=== PATIENT | female | born 1950 | race Caucasian/White ===

== ENCOUNTER → 2021-08-02 | Outpatient (CLI) | payer MEDICARE ==
[2021-08-02 15:50] LABS: HCT 48.9 % (34.0-46.0); HGB 15.5 gm/dL (11.4-16.0); MCH 30.7 pg (25.0-35.0); MCHC 31.6 g/dL (31.0-37.0); MCV 97.1 fL (80.0-100.0); Mean Platelet Volume 9.2; Platelet Count 204 k/uL (150-450); RBC 5.04 m/uL (3.80-5.40); RDW 13.2 % (11.5-15.5); WBC 6.2 k/uL (3.8-10.6)
[2021-08-02 16:01] LABS: Potassium 4.8 mmol/L (3.5-5.1)
== END | disposition home or self-care (01) ==
LOC: LABWHC1 14:08
PROVIDERS: ATTEND Internal Medicine Clinical Cardiac Electrophysiology
DX: Z01.818 Encounter for other preprocedural examination (principal); Z01.812 Encounter for preprocedural laboratory examination; I48.91 Unspecified atrial fibrillation; I48.92 Unspecified atrial flutter
CPT/HCPCS: 80051; 82565; 84520; 85027; 36415; U0003; C9803; U0005

== ENCOUNTER 2021-08-05 11:06 | Day surgery (SDC) | payer MEDICARE ==
[~2021-08-05 11:06] MED LIST: CLINDAMYCIN 900 MG in DEXTROSE 5% IN WATER 50 ML IVPB STA
[2021-08-05] MEDS: SODIUM CHLORIDE 0.9% 1,000 ML IV SCH (11:35)
[2021-08-05] MEDS ORDERED: LIDOCAINE 1% INJ 10MG/ML (20 ML MDV) ONE ×2 (11:42→13:21)
[2021-08-05] MEDS ORDERED: ONDANSETRON 4 MG/2 ML VIAL IVP STA (11:46)
[2021-08-05] MEDS ORDERED: DEXAMETHASONE SOD PHOSPHATE 4 MG/ML 1 ML VIAL IVP STA (11:46)
[2021-08-05] MEDS ORDERED: FUROSEMIDE 10 MG/ML 2 ML VIAL ONE (13:21)
[2021-08-05] MEDS ORDERED: ROCURONIUM 10 MG/ML (5 ML VIAL) IV ONE (13:21)
[2021-08-05] MEDS ORDERED: PROPOFOL 10 MG/ML 20 ML VIAL IV ONE (13:21)
[2021-08-05] MEDS ORDERED: fentaNYL (PF) 50 MCG/ML 2 ML AMP ONE (13:21)
[2021-08-05] MEDS ORDERED: GLYCOPYRROLATE 0.2 MG/ML 2 ML VIAL ONE (13:21)
[2021-08-05] MEDS ORDERED: HEPARIN SODIUM,PORCINE 10,000 UNIT/ML 1 ML VIAL ONE (13:21)
[2021-08-05] MEDS ORDERED: SUCCINYLCHOLINE CHLORIDE 100 MG/5 ML SYR IV ONE (13:21)
[2021-08-05] MEDS ORDERED: PHENYLEPHRINE-0.9% NACL SYG 1,000 MCG/10 ML SYRINGE ONE (13:21)
[2021-08-05] MEDS ORDERED: NEOSTIGMINE 1 MG/ML 10 ML VIAL ONE (13:21)
[2021-08-05] MEDS ORDERED: MIDAZOLAM 2 MG/2 ML VIAL ONE (13:21)
[2021-08-05] MEDS ORDERED: LIDOCAINE 1% INJ 10MG/ML (20 ML MDV) SQ ONE (14:16)
[2021-08-05] MEDS ORDERED: HEPARIN SOD,PORK IN 0.45% NACL 25,000 UNIT in 0.45% NACL 1 250ML.BAG IV ONE (14:17)
[2021-08-05] MEDS ORDERED: HEPARIN SODIUM (1,000 UNIT/ML) 1,000 UNIT in SODIUM CHLORIDE 0.9% 1,000 ML IRRIGATION ONE (15:40)
[2021-08-05] MEDS ORDERED: SODIUM CHLORIDE 0.9% 1,000 ML IV ONE (15:40)
[2021-08-05] MEDS ORDERED: IOPAMIDOL-370 125ML BTL INJ ONE (15:54)
--- NOTE | 2021-08-05 17:26 | P.EPPROC ---
- EP Procedure Note Electrophysiology Procedure Note: PROCEDURE A. fib ablation/PVI Typical atrial flutter ablation DIAGNOSIS Atrial fibrillation, symptomatic, refractory to therapy, with RVR Typical atrial flutter with severe bradycardia and severe pauses RESULT No left atrial appendage mass seen on intracardiac echo Biatrial enlargement with elevated pressures, preserved LV systolic function Successful A. fib ablation/pulmonary vein isolation of all veins using cryo- ablation Complete entrance block in all 4 veins confirmed No evidence for phrenic nerve injury Successful typical atrial flutter ablation with bidirectional block confirmed with differential pacing Esophageal deflection YES , left-sided esophagus Electrical cardioversion with a synchronized shock across the chest YES PROCEDURE DETAILS Patient was brought to the EP lab in a fasting state. Written informed consent was obtained prior to the procedure. Procedure performed under general anesthesia After initial muscle relaxant use, muscle relaxants were not given thereafter in order to assess phrenic nerve during procedure. Patient prepped and draped as per protocol Full cryo-set up with standard preparation of the cryoablation tools done. Femoral Venous access obtained on the right and left groins Venous and arterial Sheaths placed. Diagnostic catheters for the high right atrium, phrenic nerve stimulation and pacing, His bundle, RV and coronary sinus placed Intracardiac echo catheter placed. Long sheath placed in the right atrium Left and right transseptal catheterization performed under intracardiac echo guidance. Intravenous heparin with aCT above 300 Later, catheter positioning and balloon positioning in the left atrium, under intracardiac echo guidance Diagnostic EP study: Baseline measurements sinus cycle length 630 ms post- cardioversion VA interval 190 ms, QRS 85 ms AH 67 and HV 43 ms Coronary sinus pacing and recording Atrial pacing performed from the high right atrium AV node Wenckebach block 390 ms Sinus node recovery times at 600, 504 100 ms were 798, 1138 and 1083. Corresponding corrected sinus node recovery times normal RV pacing: His bundle pacing, concentric activation, VA Wenckebach block for 20 ms Transseptal catheterization performed RA pressure 25/10/18 LA pressure 31/13/22 Transseptal catheterization performed with standard sheath. The cryoablation sheath was then placed with an over the wire exchange without any acute complications. All 4 pulmonary veins were isolated in the following sequence: Left superior followed by left inferior followed by right superior followed by right inferior The cryo-ablation balloon was placed at the os of each vein 1.5 mL of IV dye was injected to confirm an occluded vein Goal during cryoablation was to achieve complete occlusion of the pulmonary vein, achieve -30 degrees C at 30 seconds and achieve -40 degrees C at 60 seconds and a time to effect of less than 60-90 seconds, . If not the balloon was repositioned to obtain this result After completion of Cryoblation with durations from 180-240 seconds, entrance block was confirmed with the Attain circular catheter in a roving fashion around the antrum of the pulmonary veins Phrenic nerve pacing was performed from the SVC, right innominate vein area and diaphragm voltage was monitored. Diaphragmatic contractions were also monitored manually for strength of contraction. Parameter goals for each cryo freeze Complete occlusion of the appropriate vein -30 degrees C by 30 seconds -40 degrees C by 60 seconds Minimum between minus 40-55 degrees C Thaw time greater than 10 seconds Balloon visualized by intracardiac echo The esophagus was intubated. Esophageal Temperature monitoring with a CIRCA catheter formed. Esophageal deflection for hypothermia of the esophagus below 30 degrees C Left superior pulmonary vein Complete isolation, entrance block Left inferior pulmonary vein Complete isolation, entrance block Right superior pulmonary vein, during phrenic nerve pacing Complete isolation, entrance block Right inferior pulmonary vein, during phrenic nerve pacing Complete isolation, entrance block At the end of the procedure the Achieve catheter was once again used to check for entrance block Phrenic nerve stimulation was performed to confirm diaphragmatic stimulation the end of the procedure Cine fluoroscopy was performed at the very end of the procedure to confirm movement of both diaphragms with inspiration and expiration Electrical cardioversion performed to sinus rhythm Thereafter 3-D electro-anatomic mapping of the acute tricuspid isthmus performed Cardiac echo revealed a mid isthmus step RF ablation performed from the tricuspid valve to the eustachian ridge. Complete line of block made Differential pacing performed and bidirectional block Isthmus conduction time greater than 195 ms in either direction At the end of the procedure the patient was extubated Heparin was reversed Venous sheaths were removed and hemostasis assured. Vascade for venous closure PROCEDURES PERFORMED Diagnostic EP study CS pacing and recording Left and right transseptal catheterization 3D mapping) Intracardiac echocardiography Pulmonary vein isolation with transseptal and comprehensive EPS, 69478 Typical atrial flutter ablation, 36440 Electrical cardioversion with a synchronized shock across the chest [id number]
[2021-08-05] MEDS ORDERED: ACETAMINOPHEN IV (For NPO) 1,000 MG in EMPTY BAG 1 BAG IVPB ONE (18:00)
[2021-08-05] MEDS ORDERED: MONTELUKAST 10 MG TAB PO SCH (21:00)
[2021-08-05] MEDS: APIXABAN 5 MG TAB PO SCH (21:15)
[2021-08-05] MEDS: ACETAMINOPHEN TAB 325 MG TAB PO PRN (21:15)
[2021-08-06 08:32] VITALS: RESP 18
[2021-08-06] MEDS: APIXABAN 5 MG TAB PO SCH (09:19)
[2021-08-06] MEDS: ACETAMINOPHEN TAB 325 MG TAB PO PRN (09:23)
[2021-08-06] MEDS ORDERED: METOPROLOL TARTRATE 12.5 MG TAB PO SCH (11:00)
[2021-08-06] MEDS: SODIUM CHLORIDE 0.9% 1,000 ML IV SCH (11:39)
--- NOTE | 2021-08-06 13:51 | P.DS ---
Providers Attending physician: Jose Marrero Primary care physician: Physician Nonstaff Assessment: Patient is doing well. She is sitting up in bed eating lunch She's been ambulating around the room No groin problems at all No chest discomfort She does have a sore throat Minimal cough no expectoration No pleuritic chest discomfort no dizziness or lightheadedness On examination pulse rate in the 80s and 90s, afebrile 98.4F, blood pressure 120/65 mmHg she looks comfortable Breath sounds are clear no rhonchi no crackles Normal heart sounds no rub no gallop no murmurs Extremities warm no edema No JVD Impression Paroxysmal, typical Atrial flutter with severe bradycardia and severe pauses Paroxysmal atrial fibrillation with RVR No bradycardia during sinus Successful atrial flutter ablation with bidirectional block with differential pacing Successful cryoablation of the pulmonary veins with complete isolation Normal sinus node function normal AV node function Biatrial enlargement with elevated LA and RA pressures Plan Continue ELIQUIS lifelong Watch blood pressure May stop beta blockers after 6 weeks No indication for permanent pacing at this time Plan - Discharge Summary New Discharge Prescriptions: Continue RX: Zinc 50 mg PO DAILY RX: Vit C/Ascorb Sod/Multivit-Min [Emergen-C 500 mg Chewable Tab] 1,000 mg PO DAILY RX: Glucosamine/Chondro Samuel A [Cosamin Ds Tablet] 1 each PO DAILY RX: Metoprolol Tartrate [Lopressor] 12.5 mg PO BID RX: Montelukast [Singulair] 10 mg PO HS RX: Loratadine 10 mg PO DAILY RX: Albuterol Sulfate [Proair Respiclick] 2 puff PO Q4-6H PRN PRN Reason: Shortness Of Breath RX: Apixaban [Eliquis] 5 mg PO BID Discharge Medication List RX: Albuterol Sulfate [Proair Respiclick] 2 puff PO Q4-6H PRN 08/05/21 [History] RX: Apixaban [Eliquis] 5 mg PO BID 08/05/21 [History] RX: Glucosamine/Chondro Samuel A [Cosamin Ds Tablet] 1 each PO DAILY 08/05/21 [History] RX: Loratadine 10 mg PO DAILY 08/05/21 [History] RX: Metoprolol Tartrate [Lopressor] 12.5 mg PO BID 08/05/21 [History] RX: Montelukast [Singulair] 10 mg PO HS 08/05/21 [History] RX: Vit C/Ascorb Sod/Multivit-Min [Emergen-C 500 mg Chewable Tab] 1,000 mg PO DAILY 08/05/21 [History] RX: Zinc 50 mg PO DAILY 08/05/21 [History] Follow up Appointment(s)/Referral(s): Catalino Canales MD [STAFF PHYSICIAN] - 08/19/21 3:45 pm Patient Instructions/Handouts: Cardiac Ablation (DC) Activity/Diet/Wound Care/Special Instructions: Post EP study - Ablation instructions 1. Keep access sites dry for 2 days. 2. No heavy lifting or straining for 2 days. 3. Avoid bending the hips repeatedly for 2 days. 4. You may go up and down stairs slowly Call if the following is noted 1. Bleeding, increasing swelling or pain at the access sites. 2. Increasing chest discomfort, especially upon taking a deep breath. 3. Increasing shortness of breath, at rest or with exertion. 4. Undue cough / phlegm 5. Difficulty or pain while swallowing. 6. Pain or change in color in the extremities. 7. Fever, chills, rigors. 8. Increasing headache or neurologic symptoms. 9. Dizziness, fainting, palpitations Continue ELIQUIS Discharge Disposition: HOME SELF-CARE
[2021-08-06 14:29] VITALS: BP 119/75; PULSE 91; TEMP 98.5
== END 2021-08-06 14:16 | disposition home or self-care (01) ==
LOC: CATHEP 11:06 → 6NMEDSUR 16:44 → CATHEP 08-06 14:16
PROVIDERS: ATTEND Internal Medicine Clinical Cardiac Electrophysiology
DX: I48.91 Unspecified atrial fibrillation (principal); I48.92 Unspecified atrial flutter
CPT/HCPCS: 92960; 93662; 93613; 93656; 93657; C1894 ×2; C1769 ×4; C1760; C1730 ×2; C1759; C1893; C1733; C1766; C1732; J1100; J2405; J2001; J1644 ×2; J0131; Q9967

== ENCOUNTER → 2023-12-08 | Outpatient (CLI) | payer MEDICARE ==
[2023-12-08 19:07] LABS: HCT 50.2 % (37.2-46.3); HGB 15.9 g/dL (12.0-15.0); MCH 30.2 pg (27.0-32.0); MCHC 31.7 g/dL (32.0-37.0); MCV 95.4 FL (80.0-97.0); NRBC Per 100 WBC 0 X 10*3/uL (0.00-0.01); Platelet Count 206 X 10*3/uL (140-440); RBC 5.26 X 10*6/uL (4.10-5.20); RDW 13.3 % (11.5-14.5); WBC 5.73 X 10*3/uL (4.50-10.00)
[2023-12-08 20:54] LABS: BUN/Creat Ratio 14.11 Ratio (12.00-20.00); Blood Urea Nitrogen 12.7 mg/dL (9.0-27.0); Calcium 10.4 mg/dL (8.7-10.3); Carbon Dioxide 23.4 mmol/L (21.6-31.8); Chloride 105 mmol/L (96-109); Chol/HDL Ratio 2.32 Ratio; Glucose 114 mg/dL (70-110); LDL Cholesterol,Calculated 89.4 mg/dL (0.0-131.0); Potassium 4.5 mmol/L (3.5-5.5); Sodium 143 mmol/L (135-145); VLDL Calculation 11.94 mg/dL (5.00-40.00)
== END | disposition home or self-care (01) ==
LOC: LABWHC1 12:11
PROVIDERS: ATTEND Internal Medicine Interventional Cardiology
DX: E78.5 Hyperlipidemia, unspecified (principal)
CPT/HCPCS: 36415; 80048; 80061; 83036; 85027

== ENCOUNTER 2024-04-25 02:59 | Emergency (ER) | payer MEDICARE ==
[2024-04-25 03:06] VITALS: RESP 16
--- NOTE | 2024-04-25 03:24 | ED ---
Fall HPI - General Chief Complaint: Fall Stated Complaint: Fall Time Seen by Provider: 04/25/24 03:21 Source: EMS, RN notes reviewed, old records reviewed Mode of arrival: EMS Limitations: no limitations - History of Present Illness Initial Comments: This is a 74-year-old female after a trip and fall. Patient had a trip and fall this morning bringing in groceries that they did not finish bring him last night, patient fell forward landing on her right hand hitting her head and is on Eliquis. No neck pain complaining of right and left hand pain wrist pain and right hip pain. 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, by family Place Fall Occurred: home Loss of Consciousness: none Prolonged Down Time?: no Symptoms Prior to Fall: none Location: head, buttocks Location - Extremities: Left: Hand, Thigh, Right: Hand, Thigh Severity: moderate Severity scale (1-10): 8 Context: tripped/slipped Associated Symptoms: denies - Related Data Home Medications Medication Instructions Recorded Confirmed Albuterol Sulfate [Proair 2 puff PO Q4-6H PRN 08/05/21 08/05/21 Respiclick] Apixaban [Eliquis] 5 mg PO BID 08/05/21 08/05/21 Glucosamine/Chondro Samuel A [Cosamin 1 each PO DAILY 08/05/21 08/05/21 Ds Tablet] Loratadine 10 mg PO DAILY 08/05/21 08/05/21 Metoprolol Tartrate [Lopressor] 12.5 mg PO BID 08/05/21 08/05/21 Montelukast [Singulair] 10 mg PO HS 08/05/21 08/05/21 Vit C/Ascorb Sod/Multivit-Min 1,000 mg PO DAILY 08/05/21 08/05/21 [Emergen-C 500 mg Chewable Tab] Zinc 50 mg PO DAILY 08/05/21 08/05/21 Allergies Allergy/AdvReac Type Severity Reaction Status Date / Time Penicillins Allergy Unknown Verified 04/25/24 03:05 Review of Systems ROS Statement: Those systems with pertinent positive or pertinent negative responses have been documented in the HPI. ROS Other: All systems not noted in ROS Statement are negative. Past Medical History Past Medical History: Atrial Fibrillation, Hypertension History of Any Multi-Drug Resistant Organisms: None Reported Past Surgical History: No Surgical Hx Reported Smoking Status: Never smoker General Exam Limitations: no limitations General appearance: alert, in no apparent distress Head exam: Present: atraumatic, normocephalic, normal inspection Eye exam: Present: normal appearance, PERRL, EOMI. Absent: scleral icterus, conjunctival injection, periorbital swelling ENT exam: Present: normal exam, mucous membranes moist Neck exam: Present: normal inspection. Absent: tenderness, meningismus, lymphadenopathy Respiratory exam: Present: normal lung sounds bilaterally. Absent: respiratory distress, wheezes, rales, rhonchi, stridor Cardiovascular Exam: Present: regular rate, normal rhythm, normal heart sounds. Absent: systolic murmur, diastolic murmur, rubs, gallop, clicks GI/Abdominal exam: Present: soft, normal bowel sounds. Absent: distended, tenderness, guarding, rebound, rigid Extremities exam: Present: normal inspection, full ROM, normal capillary refill. Absent: tenderness, pedal edema, joint swelling, calf tenderness Back exam: Present: normal inspection Neurological exam: Present: alert, oriented X3, CN II-XII intact Psychiatric exam: Present: normal affect, normal mood Skin exam: Present: warm, dry, intact, normal color. Absent: rash Course Vital Signs 04/25/24 04/25/24 04/25/24 02:59 03:52 05:16 Temperature 98.4 F 98.8 F Pulse Rate 64 89 89 Respiratory 16 16 16 Rate Blood Pressure 123/94 118/75 104/86 O2 Sat by Pulse 97 97 94 L Oximetry - Reevaluation(s) Reevaluation #1: 04/25/24 05:04 Records reviewed Reevaluation #2: 04/25/24 05:04 Patient symptoms unchanged Reevaluation #3: 04/25/24 05:04 Patient informed of results and questions answered Reevaluation #4: Was pt. sent in by a medical professional or institution (, PA, MOLD PULLER, urgent care, hospital, or correction...) When possible be specific @ -no Did you speak to anyone other than the patient for history (EMS, parent, family, police, friend...)? What history was obtained from this source @ -no Did you review nursing and triage notes (agree or disagree)? Why? @ -agree Are old charts reviewed (outside hosp., previous admission, EMS record, old EKG, old radiological studies, urgent care reports/EKG's, correction records)? Report findings @ -yes Differential Diagnosis (chest pain, altered mental status, abdominal pain women, abdominal pain men, vaginal bleeding, weakness, fever, dyspnea, syncope, headache, dizziness, GI bleed, back pain, seizure, CVA, palpatations, mental health, musculoskeletal)? @ -prior EKG interpreted by me (3pts min.). @ -yes X-rays interpreted by me (1pt min.). @ -yes positive radius fracture CT interpreted by me (1pt min.). @ -Yes negative for acute disease U/S interpreted by me (1pt. min.). @ -no What testing was considered but not performed or refused? (CT, X-rays, U/S, labs)? Why? @ -none What meds were considered but not given or refused? Why? @ -none Did you discuss the management of the patient with other professionals (professionals i.e. , PA, MOLD PULLER, lab, RT, psych nurse, social security assessor, assistant program director, teacher, youth corrections officer, correctional case manager)? Give summary @ -no Was smoking cessation discussed for >3mins.? @ -no Was critical care preformed (if so, how long)? @ -yes31 Were there social determinants of health that impacted care today? How? (Homelessness, low income, unemployed, alcoholism, drug addiction, transportation, low edu. Level, literacy, decrease access to med. care, fdc, rehab)? @ -none Was there de-escalation of care discussed even if they declined (Discuss DNR or withdrawal of care, Hospice)? DNR status @ -no What co-morbidities impacted this encounter? (DM, HTN, Smoking, COPD, CAD, C ancer, CVA, ARF, Chemo, Hep., AIDS, mental health diagnosis, sleep apnea, morbid obesity)? @ -none Was patient admitted / discharged? Hospital course, mention meds given and route, prescriptions, significant lab abnormalities, going to OR and other pertinent info. @ - 74 female to the ER for evaluation of a fall fall from standing while walking, patient has right wrist fracture right wrist radial fracture A-fib with RVR resolved patient feels improved will be discharged home DisCharged Undiagnosed new problem with uncertain prognosis? @ -no Drug Therapy requiring intensive monitoring for toxicity (Heparin, Nitro, Insulin, Cardizem)? @ -no Were any procedures done? @ -Ortho splinting Diagnosis/symptom? @ -atrial fibrillation with RVR fall and right wrist fractur Acute, or Chronic, or Acute on Chronic? @ -Acute Uncomplicated (without systemic symptoms) or Complicated (systemic symptoms)? @ -Complicated Side effects of treatment? @ -no Exacerbation, Progression, or Severe Exacerbation? @ -exacerbation Poses a threat to life or bodily function? How? (Chest pain, USA, PR, pneumonia, PE, COPD, DKA, ARF, appy, cholecystitis, CVA, Diverticulitis, Homicidal, Suicidal, threat to staff... and all critical care pts) @ -yes Reevaluation #5: Differential Weakness: Hypoglycemia, shock, sepsis, hyponatremia, anemia, infection, PR, ETOH, adverse medicine reaction, overdose, stroke, this is not meant to be an all-inclusive list. Differential Palpitations Ventricular arrhythmias, atrial arrhythmias, myocardial infarction, anemia, thyrotoxicosis, electrolyte imbalance, hypokalemia, pulmonary embolism, pulmonary disease, drugs, alcohol, anxiety, stress.... This is not meant to be an all-inclusive list. Procedures - Orthopedic Splinting/Casting Injury #1 Side: right Upper Extremity Injury Location: wrist Upper Extremity Immobilizer: wrist splint Medical Decision Making - Medical Decision Making 74 female to the ER for evaluation of a fall fall from standing while walking, patient has right wrist fracture right wrist radial fracture A-fib with RVR resolved patient feels improved will be discharged home - Lab Data Result diagrams: 04/25/24 03:33 04/25/24 03:33 Lab Results 04/25/24 04/25/24 04/25/24 Range/Units 03:33 03:33 03:33 WBC 14.3 H (3.8-10.6) k/uL RBC 4.64 (3.80-5.40) m/uL Hgb 14.2 (11.4-16.0) gm/dL Hct 44.6 (34.0-46.0) % MCV 96.0 (80.0-100.0) fL MCH 30.6 (25.0-35.0) pg MCHC 31.9 (31.0-37.0) g/dL RDW 14.0 (11.5-15.5) % Plt Count 177 (150-450) k/uL MPV 9.8 Neutrophils % 84 % Lymphocytes % 9 % Monocytes % 6 % Eosinophils % 1 % Basophils % 0 % Neutrophils # 12.0 H (1.3-7.7) k/uL Lymphocytes # 1.2 (1.0-4.8) k/uL Monocytes # 0.8 (0-1.0) k/uL Eosinophils # 0.1 (0-0.7) k/uL Basophils # 0.1 (0-0.2) k/uL PT 12.1 (10.0-12.5) sec INR 1.1 (<1.2) APTT 23.6 (22.0-30.0) sec Sodium 138 (137-145) mmol/L Potassium 4.5 (3.5-5.1) mmol/L Chloride 109 H (98-107) mmol/L Carbon Dioxide 20 L (22-30) mmol/L Anion Gap 9 mmol/L BUN 22 H (7-17) mg/dL Creatinine 0.73 (0.52-1.04) mg/dL Est GFR (CKD-EPI)AfAm >90 (>60 ml/min/1.73 sqM) Est GFR (CKD-EPI)NonAf 81 (>60 ml/min/1.73 sqM) Glucose 136 H (74-99) mg/dL Calcium 9.5 (8.4-10.2) mg/dL Phosphorus 3.3 (2.5-4.5) mg/dL Magnesium 1.9 (1.6-2.3) mg/dL Total Bilirubin 1.3 (0.2-1.3) mg/dL AST 20 (14-36) U/L ALT 16 (4-34) U/L Alkaline Phosphatase 76 (38-126) U/L Creatine Kinase 59 (30-135) U/L Troponin I (0.000-0.034) ng/mL NT-Pro-B Natriuret Pep 2380 pg/mL Total Protein 6.0 L (6.3-8.2) g/dL Albumin 3.9 (3.5-5.0) g/dL TSH 2.180 (0.465-4.680) mIU/L 04/25/24 Range/Units 03:33 WBC (3.8-10.6) k/uL RBC (3.80-5.40) m/uL Hgb (11.4-16.0) gm/dL Hct (34.0-46.0) % MCV (80.0-100.0) fL MCH (25.0-35.0) pg MCHC (31.0-37.0) g/dL RDW (11.5-15.5) % Plt Count (150-450) k/uL MPV Neutrophils % % Lymphocytes % % Monocytes % % Eosinophils % % Basophils % % Neutrophils # (1.3-7.7) k/uL Lymphocytes # (1.0-4.8) k/uL Monocytes # (0-1.0) k/uL Eosinophils # (0-0.7) k/uL Basophils # (0-0.2) k/uL PT (10.0-12.5) sec INR (<1.2) APTT (22.0-30.0) sec Sodium (137-145) mmol/L Potassium (3.5-5.1) mmol/L Chloride (98-107) mmol/L Carbon Dioxide (22-30) mmol/L Anion Gap mmol/L BUN (7-17) mg/dL Creatinine (0.52-1.04) mg/dL Est GFR (CKD-EPI)AfAm (>60 ml/min/1.73 sqM) Est GFR (CKD-EPI)NonAf (>60 ml/min/1.73 sqM) Glucose (74-99) mg/dL Calcium (8.4-10.2) mg/dL Phosphorus (2.5-4.5) mg/dL Magnesium (1.6-2.3) mg/dL Total Bilirubin (0.2-1.3) mg/dL AST (14-36) U/L ALT (4-34) U/L Alkaline Phosphatase (38-126) U/L Creatine Kinase (30-135) U/L Troponin I <0.012 (0.000-0.034) ng/mL NT-Pro-B Natriuret Pep pg/mL Total Protein (6.3-8.2) g/dL Albumin (3.5-5.0) g/dL TSH (0.465-4.680) mIU/L - EKG Data -: EKG Interpreted by Me (EKG is A-fib with RVR 133 QRS 86 QTc 365) - Radiology Data Radiology results: report reviewed (CT Brain C-spine x-rays chest and pelvis wrist and hand positive for right wrist fracture), image reviewed Critical Care Time Critical Care Time: Yes Total Critical Care Time: 31 Disposition Clinical Impression: Fall, Atrial fibrillation with rapid ventricular response, Right radial fracture Disposition: HOME SELF-CARE Condition: Good Instructions (If sedation given, give patient instructions): Wrist Fracture in Adults (ED), Fall Prevention for Older Adults (ED) Is patient prescribed a controlled substance at d/c from ED?: No Referrals: Sonia Barrios MD [Primary Care Provider] - 1-2 days Adan Quarles MD [STAFF PHYSICIAN] - 1-2 days Time of Disposition: 05:00
[2024-04-25] MEDS: SODIUM CHLORIDE 0.9% 1,000 ML IV STA (03:41)
[2024-04-25] MEDS: DILTIAZEM 125 MG in SODIUM CHLORIDE 0.9% 100 ML IV SCH (03:41)
[2024-04-25] MEDS: DILTIAZEM DRIP BOLUS FROM BAG 1 MG SOLN IV ONE (03:42)
[2024-04-25 03:52] VITALS: PULSE 89
[2024-04-25 04:04] LABS: Basophils # (A) 0.1 k/uL (0-0.2); Basophils % (A) 0 %; Eosinophils # (A) 0.1 k/uL (0-0.7); Eosinophils % (A) 1 %; HCT 44.6 % (34.0-46.0); HGB 14.2 gm/dL (11.4-16.0); Lymphocytes # (A) 1.2 k/uL (1.0-4.8); Lymphocytes % (A) 9 %; MCH 30.6 pg (25.0-35.0); MCHC 31.9 g/dL (31.0-37.0); Mean Platelet Volume 9.8; Monocytes # (A) 0.8 k/uL (0-1.0); Monocytes % (A) 6 %; Neutrophils % (A) 84 %; Platelet Count 177 k/uL (150-450); RBC 4.64 m/uL (3.80-5.40); WBC 14.3 k/uL (3.8-10.6)
[2024-04-25 04:11] LABS: ALT 16 U/L (4-34); AST 20 U/L (14-36); African American GFR (CKD) >90 (>60 ml/min/1.73 sqM); Albumin 3.9 g/dL (3.5-5.0); Alkaline Phosphatase 76 U/L (38-126); Anion Gap 9 mmol/L; Blood Urea Nitrogen 22 mg/dL (7-17); Calcium 9.5 mg/dL (8.4-10.2); Carbon Dioxide 20 mmol/L (22-30); Chloride 109 mmol/L (98-107); Creatine Kinase 59 U/L (30-135); Glucose 136 mg/dL (74-99); Magnesium 1.9 mg/dL (1.6-2.3); Non-African American GFR(CKD) 81 (>60 ml/min/1.73 sqM); Phosphorus 3.3 mg/dL (2.5-4.5); Potassium 4.5 mmol/L (3.5-5.1); Sodium 138 mmol/L (137-145); Total Bilirubin 1.3 mg/dL (0.2-1.3)
[2024-04-25 04:17] LABS: NT-Pro-B-Type Natriuretic Pept 2380 pg/mL
--- NOTE | 2024-04-25 04:33 | XR ---
EXAM: XR Chest, 1 View CLINICAL HISTORY: ITS.REASON XR Reason: fall TECHNIQUE: Frontal view of the chest. COMPARISON: None FINDINGS: Hardware: None. Lungs/pleura: Mild lower lung opacities. No pleural effusion or pneumothorax. Heart/mediastinum: Enlargement of the cardiac silhouette. Soft tissues: Unremarkable. Bones: No acute fracture. Degenerative changes of the shoulders. Upper abdomen: Normal. IMPRESSION: Mild lower lung opacities may be secondary to overlying soft tissue density and atelectasis. No other focal consolidation.
[2024-04-25] MEDS: ACETAMINOPHEN TAB 500 MG TAB PO STA (04:42)
--- NOTE | 2024-04-25 04:48 | XR ---
EXAM: XR Pelvis, 1 or 2 Views CLINICAL HISTORY: ITS.REASON XR Reason: fall TECHNIQUE: Frontal view of the pelvis. COMPARISON: None FINDINGS: Bones/joints: No displaced fracture or dislocation identified. Bilateral hip arthroplasties. No definite evidence of hardware complication. Degenerative changes of the visualized lumbar spine. No bony lesion. Soft tissues: Normal. No radiopaque foreign body identified. Possible calcified uterine fibroids in the pelvis. IMPRESSION: No displaced fracture or dislocation identified. Further evaluation could be performed with CT or MRI if clinically indicated.
[2024-04-25 04:50] LABS: INR 1.1 (<1.2); Partial Thromboplastin Time 23.6 sec (22.0-30.0); Prothrombin Time 12.1 sec (10.0-12.5)
[2024-04-25] MEDS: KETOROLAC 15 MG/ML 1 ML VIAL IVP STA (04:50)
--- NOTE | 2024-04-25 04:56 | XR ---
EXAM: XR Right Wrist Complete, 3 or More Views CLINICAL HISTORY: [email or web address].REASON XR Reason: fall TECHNIQUE: Frontal, lateral and oblique views of the right wrist. COMPARISON: None FINDINGS: Bones/joints: Displaced fracture of the distal right radial metaphysis. Distal fracture fragment is displaced ventrally relative to the rest of the radius. Moderate degenerative changes of the right first, second MCP joints. Mild degenerative change of the right third MCP joint. Mild degenerative change of the right first CMC joint. No dislocation. Soft tissues: Soft tissue swelling. No radiopaque foreign body. IMPRESSION: Displaced fracture of the distal right radial metaphysis.
--- NOTE | 2024-04-25 04:57 | XR ---
EXAM: XR Left Hand Complete, 3 or More Views CLINICAL HISTORY: [email or web address].REASON XR Reason: fall TECHNIQUE: Frontal, lateral and oblique views of the left hand. COMPARISON: None FINDINGS: Bones/joints: No displaced fracture or dislocation identified. Mild degenerative changes of the left first through third MCP joints. Mild degenerative changes of the interphalangeal joints. No bony lesion. Soft tissues: Normal. No radiopaque foreign body identified. IMPRESSION: No displaced fracture or dislocation identified.
[2024-04-25 05:28] VITALS: BP 104/86; TEMP 98.8
--- NOTE | 2024-04-25 05:38 | CT ---
EXAM: CT Head Without Intravenous Contrast CLINICAL HISTORY: ITS.REASON CT Reason: fall TECHNIQUE: Axial computed tomography images of the head/brain without intravenous contrast. CTDI is 45.2 mGy and DLP is 1071 mGy-cm. This CT exam was performed using one or more of the following dose reduction techniques: automated exposure control, adjustment of the mA and/or kV according to patient size, and/or use of iterative reconstruction technique. COMPARISON: None FINDINGS: Brain: No acute infarct or hemorrhage identified. No extra-axial fluid collection. No mass effect or midline shift. Scattered areas of hypoattenuation in the supratentorial white matter likely represent chronic small vessel ischemic changes. Small remote lacunar infarct in the right basal ganglia. Ventricles and sulci: Prominence of the ventricles and sulci is likely secondary to cerebral volume loss. Bones: Mild hyperostosis frontalis interna. No bony lesion or acute fracture. Subcutaneous tissues: Normal. Sinuses: Mild mucosal thickening in the ethmoid air cells. Mastoid air cells: Normal. Orbits: Grossly unremarkable. Other: Atherosclerotic calcifications in the intracranial vasculature. IMPRESSION: 1. No acute intracranial abnormality. 2. Chronic small vessel ischemic changes and cerebral volume loss. Small remote lacunar infarct in the right basal ganglia. EXAM: CT Cervical Spine Without Intravenous Contrast CLINICAL HISTORY: ITS.REASON CT Reason: fall TECHNIQUE: Axial computed tomography images of the cervical spine without intravenous contrast. CTDI is 13.4 mGy and DLP is 352.4 mGy-cm. This CT exam was performed using one or more of the following dose reduction techniques: automated exposure control, adjustment of the mA and/or kV according to patient size, and/or use of iterative reconstruction technique. COMPARISON: None FINDINGS: Bones: Mild reversal of the normal cervical lordosis. No acute fracture or bony lesion. Disc spaces: No subluxation. Degenerative changes of the spine. Soft tissues: Normal. Other: Atherosclerotic changes of the vasculature. IMPRESSION: No acute traumatic abnormality.
== END 2024-04-25 05:49 | disposition home or self-care (01) ==
LOC: EC 02:59
CPT/HCPCS: 36415; 70450; 71045; 72125; 72170; 80053; 82550; 83735; 83880; 84100; 84443; 84484; 85025; 85610; 85730; 93005; 96365; 96366; 99285